=== PATIENT | female | born 1950 | race Caucasian/White ===

== ENCOUNTER 2017-01-21 00:16 | Emergency (ER) | payer MEDICARE ==
[~2017-01-21] VITALS: Ht 162.6 cm; Wt 63.6 kg
[2017-01-21 00:20] VITALS: BP 153/89; PULSE 93; RESP 20; O2SAT 99
--- NOTE | 2017-01-21 00:27 | ED.REPORT ---
HPI-Trauma Minor / Fall Date of Service Jan 21, 2017 ED Provider: Doron Serna MD Pt is a 66 y/o female w/ a hx of bioprosthetic aortic valve replacement, presenting to the ED due to fall down stairs. The patient fell down some stairs because she had too much wine (3 glasses). At time of arrival she is feeling well and wants to go home. She denies neck, hip, or back injury. She denies HUTCHISON, change in LOC, extremity pain, numbness or tingling, weakness. She is not on anticoagulants. Nursing Notes Stated Complaint: HEAD INJURY, FALL DOWN STAIRS Chief Complaint: Head, Face, Neck Trauma Nursing Notes Reviewed: Yes Allergies: Coded Allergies: No Known Allergies (Unverified , 01/21/17) General Time Seen by MD: 00:26 Chief Complaint Fall down stairs Hx Obtained From: Patient Arrived By: Walk-in Onset Occurred: Just prior to arrival Symptom Duration: Since onset Severity: Current: No pain currently Severity: Maximum: No pain Recent Healthcare: No recent doctor visit, No recent hospitalization Similar Sx Previous: No Past Medical History Past Medical History Bioprosthetic aortic valve replacement Past Surgical History Bioprosthetic aortic valve replacement R hip replacement Smoking History Unknown if Ever Smoker Social History Alcohol Use: 1-3 per day Ambulatory Status Independent Review of Systems Constitutional: Denies: Chills, Fever Respiratory: Denies: Non-productive cough, Pleuritic pain, Shortness of breath Musculoskeletal: Denies: Back pain, Extremity pain, Extremity swelling, Joint pain, Joint swelling, Lumbar pain, Myalgia, Neck pain, Thoracic pain Neurologic: Denies: Change LOC, Headache, Syncope Complete sys rev & neg: except as marked. GI: Denies: Abdominal pain, Nausea, Vomiting Female: Denies: Pelvic pain Physical Exam Initial Vital Signs Vital Signs (First) Date Time Temp Pulse Resp B/P Pulse Ox O2 Delivery O2 Flow Rate FiO2 01/21/17 00:20 36.0 93 20 153/89 99 Room Air Initial VS: Reviewed, Vital signs normal ENT: Mucous membranes moist, Conjunctiva normal, No scleral icterus Respiratory: Breath sounds normal, Clear to auscultation, No respiratory distress Cardiovascular: Regular rate & rhythm, Heart sounds normal, Intact distal pulses Abdomen / GI: Soft, No distention Extremities: Vascular intact, Neuro intact, No swelling, No tenderness Skin: Warm, Dry, No cyanosis Psychiatric: Mood/affect normal, Behavior normal, Normal thought content General/Constitutional: Awake, Alert, No acute distress, Well appearing, Cooperative, Not toxic appearing Not visible intoxicated Neck: Atraumatic, Supple, No meningismus, Full range of motion, No swelling, Non-tender, No midline vertebral tend Head / Eyes: Normocephalic, PERRL 3 cm mildly gaping laceration about left occiput with underlying hematoma. Neurologic: Oriented X3, Speech NL, No motor deficits, No sensory deficits Interpretation & Diagnostics Lab Results Interpretation Test 01/21/17 01:00 Hold Villar Top Tube Received (Received) Alcohols 197mg/dL (0-10) CT Head Interpretation Conclusion: Mild right parietal scalp hematoma. Mild, chronic white matter disease. No acute intracranial abnormality. Interpreted by Yadira Rodriguez MD at 01:17 Study: Head CT no contrast Interpretation / Wet Read by: Interpret - Radiologist CT C-Spine Interpretation Conclusion: Extensive degenerative change of the lower cervical and upper thoracic spine, as detailed above. No cervical fracture or listhesis. Interpreted by Yadira Rodriguez MD at 01:19 Study type: CT no contrast Interpretation / Wet Read by: Interpret - Radiologist Re-Eval/Medical Decision Re-Evaluation/Progress #1: Time of Eval: 01:09 Re-Evaluation/Progress Note: Pt rechecked. After CT scans were wet read as grossly negative the c-collar was removed and the laceration will be cleaned and inspected. Re-Evaluation/Progress #2: Time of Eval: :27 Re-Evaluation/Progress Note: Pt rechecked. Informed pt of negative imaging reads. She has a 3 cm laceration that is gaping mildly and not bleeding presently. She is refusing sutures at this time. Informed pt of plan for treatment. Pt understands and agrees with plan for treatment. F/U instructions and RTER warnings given. All questions addressed. Counseled Regarding: Diagnosis, Need for follow-up, When/why to return to ED Discharge & Departure Impression: Primary Impression: Fall from ground level Additional Impressions: Scalp laceration Encounter type: initial encounter Qualified Code: S01.01XA - Laceration without foreign body of scalp, initial encounter Acute alcohol intoxication Complication of substance-induced condition: uncomplicated Qualified Code: F10.120 - Alcohol abuse with intoxication, uncomplicated Disposition: Home Discharge Condition All VS Reviewed: Yes Condition: Stable Patient Instructions: Acute Wound Care (GEN) Additional Instructions: Keep scalp wound clean, cover with antibiotic ointment 1-2 times a day. It is possible to have delayed bleeding inside the skull after a head injury therefore if you experience headache vomiting unsteadiness on your feet turn emergency department for reevaluation. Scribe Attestation Portions of this note were transcribed by El Dowling. I, Dr. Serna personally performed the history, physical exam and medical decision-making; I reviewed and confirmed the accuracy of the information in the transcribed note. Signed by Delores Hooper, 01/21/17 - 0045 Doron Serna MD Jan 21, 2017 00:27 EL DOWLING Jan 21, 2017 00:35
[2017-01-21 01:38] VITALS: BP 144/86; PULSE 87; RESP 16; O2SAT 99
--- NOTE | 2017-01-21 08:55 | DRSVH ---
PROCEDURE: CT BRAIN WITHOUT CONTRAST ([id number]) INDICATIONS: fall head and neck injury TECHNIQUE: Noncontrast 4.5 mm thick angled axial sections acquired from the foramen magnum to the vertex, with c oronal reformats. COMPARISON: None. FINDINGS: Image quality: Excellent. CSF spaces: Basal cisterns are patent. No extra-axial fluid collections. The ventricles are symmet carlotta in size and shape. There is mild cerebral volume loss, with resultant ventricular and sulcal pro minence. Brain: No intracranial hemorrhage, mass, or mass effect. There are subcortical, periventricular and deep white matter hypodensities consistent with mild chronic small vessel ischemic changes. There i s intracranial internal carotid artery atherosclerosis. Skull and face: There is soft tissue swelling in the right posterior parietal scalp consistent with a soft tissue contusion. Calvarium and visualized facial bones appear intact. Sinuses: Visualized sinuses and mastoids are clear. IMPRESSION: 1. No acute intracranial abnormality. 2. Right posterior parietal scalp soft tissue contusion without evidence of fracture. 3. Mild chronic white matter small vessel ischemic changes and cerebral volume loss. Dictated by: Rusty Vieira M.D. on 01/21/2017 at 8:46 Approved by: Rusty Vieira M.D. on 01/21/2017 at 8:48
--- NOTE | 2017-01-21 09:02 | DRSVH ---
PROCEDURE: CT CERVICAL SPINE WITHOUT CONTRAST ([id number]) INDICATIONS: fall head and neck injury TECHNIQUE: Noncontrast 3 mm thick sections acquired from the skull base to the T4 level. Sagittal and coronal r eformats were then constructed. For radiation dose reduction, the following was used: automated exp osure control, adjustment of mA and/or kV according to patient size. COMPARISON: None. FINDINGS: Image quality: There is mild motion artifact. Bones: No fractures or dislocations. There is mild retrolisthesis at C4-C5 and minimal retrolisthes is at C5-C6 and C6-C7. Minimal anterolisthesis present at C7-T1 and T2-T3. Findings are likely dege nerative in etiology. There is multilevel disc space narrowing including moderate to severe narrowin g at C4-C5, C5-C6, and C6-C7. There is associated endplate osteophytosis and mild sclerosis. Mild u ncovertebral joint arthropathy is also present in the lower cervical spine. There is multilevel face t arthropathy most prominent on the right at C7-T1. Visualized superior ribs are intact. Soft tissues: Prevertebral soft tissues are normal in thickness. No paravertebral hematomas. No ap ical pneumothoraces. IMPRESSION: 1. No acute fracture identified. 2. Mild multilevel spondylolisthesis likely degenerative in etiology. 3. Multilevel degenerative changes as described. Dictated by: Rusty Vieira M.D. on 01/21/2017 at 8:51 Approved by: Rusty Vieira M.D. on 01/21/2017 at 8:55
== END 2017-01-21 01:54 | disposition home or self-care (01) ==
LOC: SED 00:16
DX: S01.01XA Laceration without foreign body of scalp, initial encounter (principal); W10.9XXA Fall (on) (from) unspecified stairs and steps, initial encounter; Y93.89 Activity, other specified; Y92.019 Unspecified place in single-family (private) house as the place of occurrence of the external cause; Y99.8 Other external cause status; F10.120 Alcohol abuse with intoxication, uncomplicated; Z96.641 Presence of right artificial hip joint; Z95.4 Presence of other heart-valve replacement; Y99.0 Civilian activity done for income or pay
CPT/HCPCS: 36415; 70450; 72125; 99284; G0480